=== PATIENT | female | born 1955 | race Asian ===

== ENCOUNTER → 2018-11-01 | Outpatient (CLI) | payer OTHER ==
[~2018-11-01] MED LIST: BONIVA150 MG PO; FLONASE NASAL S16 GM NS; HCTZ 25MG TAB25 MG PO; OMEGA-31 SGL PO; PREMPRO 0.625/21 TAB PO; SINGULAIR 110 MG/TAB PO; VITAMIN D1000 IU PO; ZOCOR 20MG20 MG PO
== END ==
LOC: COL.PUL 07:39
DX: Z01.818 Encounter for other preprocedural examination (principal); A31.0 Pulmonary mycobacterial infection; J47.1 Bronchiectasis with (acute) exacerbation

== ENCOUNTER → 2024-07-12 | Outpatient (CLI) | payer MEDICARE, OTHER ==
[~2024-07-12] MED LIST changes: +ASPIRIN 81M81 MG/TA2 PO; +CARAFATE 1GM1 G PO; +CENTRUM CHEWAB1 EAC4 PO; +CLARITIN 1010 MG/TAB PO; +HYGROTON 2525 MG/TAB PO; +HYPERSAL 4 ML4 M1 INH; +NYSTATIN OR100 MU/ML PO; +PLAQUENIL 200M200 MG PO; +PREMPRO 0.3 MG-1 TAB PO; +PREMPRO 0.45 MG1 TAB PO; -PREMPRO 0.625/21 TAB PO; +PRILOTC PO; +REFRESH TEARS 330 ML OP; +VITAMIN C500 MG PO; +ZEBETA 5MG5 MG PO
== END ==
LOC: COL.RAD 09:47
DX: J47.9 Bronchiectasis, uncomplicated (principal)